=== PATIENT | female | born 1960 ===

== ENCOUNTER 2017-09-22 08:01 | Day surgery (SDC) | payer MEDICAID ==
[2017-09-22 08:44] VITALS: RESP 18
[2017-09-22] MEDS ORDERED: Midazolam 2 MG/2 ML VIAL ONE (10:29)
[2017-09-22] MEDS ORDERED: Propofol 10 mg/ml Inj (20 ML) ONE (10:29)
[2017-09-22] MEDS ORDERED: ceFAZolin IV 1 gm in Dextrose 1 GM/50 ML BAG IVPB ONE (10:39)
[2017-09-22] MEDS ORDERED: Lidocaine 2% Jelly (Uro-Jet) ONE (10:39)
[2017-09-22] MEDS ORDERED: Lactated Ringer's 1,000 ML IV ONE (10:40)
[2017-09-22] MEDS ORDERED: Dexamethasone 4 mg/1 ml ONE (10:49)
[2017-09-22] MEDS ORDERED: HYDROmorphone 0.5 mg/0.5 ml ISec IVP PRN (11:08)
[2017-09-22 12:45] VITALS: BP 133/74; PULSE 64; TEMP 98; O2SAT 97
--- NOTE | 2017-09-23 10:47 | OP ---
PROCEDURE DATE: 09/22/2017 PREOPERATIVE DIAGNOSIS: Hematuria evaluation. POSTOPERATIVE DIAGNOSES: Hematuria evaluation and urethral stricture. PROCEDURE: Urethral dilatation followed by cystoscopy. DESCRIPTION OF PROCEDURE: The patient was placed on the operating table in a dorsal lithotomy position, given general anesthesia. The area of the groin was draped and prepped in the sterile manner. I attempted to insert a #17 cystoscope into the bladder and found complete resistance at this time. I then used female dilators to calibrate and dilate the urethra. I had to start out with a size 14-Malaysian and even that went in with some difficulty, but managed to dilate to a size 24-Malaysian. There was minimal bleeding noted. Once we achieved a 24-Malaysian diameter, then I removed the dilator and inserted a 17 through a cystoscope. There was no evidence of any bladder wall lesions. Ureteral orifices were seen effluxing clear urine left and right and in normal position. The bladder dome, the lateral steen were evaluated. There was no unusual findings on cystoscopy. Once this was done, I removed the cystoscope. I re-inserted the dilator for several minutes and then infused that area with 2% lidocaine jelly. Following this, the patient was taken from the operating room in good condition. Olga Uriarte MD
== END 2017-09-22 13:17 | disposition home or self-care (01) ==
LOC: H.OPSURG 08:01
PROVIDERS: ATTEND Urology
DX: R31.9 Hematuria, unspecified (principal); I10 Essential (primary) hypertension; N35.8 Other urethral stricture
CPT/HCPCS: 52281; J0690; J1100; J1885; J2001; J2250; J2405; J2704; J2765; J3010; J7120